=== PATIENT | female | born 1940 | race Caucasian/White ===

== ENCOUNTER → 2016-11-16 | Outpatient (CLI) | payer OTHER ==
[2016-11-16 16:24] LABS: FREE T4 (FREE THYROXINE) 2.1 ng/dL (0.93-1.71)
== END ==
LOC: MOB LAB 11:54
PROVIDERS: ATTEND Internal Medicine
DX: E03.9 Hypothyroidism, unspecified (principal); Z79.899 Other long term (current) drug therapy
CPT/HCPCS: 36415; 84439; 84443; 99214

== ENCOUNTER → 2017-01-22 | Outpatient (CLI) | payer OTHER | LOC: LAB 11:09 | PROVIDERS: ATTEND Internal Medicine | DX: E03.9 Hypothyroidism, unspecified (principal); I48.91 Unspecified atrial fibrillation | CPT/HCPCS: 36415; 80162; 84439; 84443; 99214 ==

== ENCOUNTER → 2017-03-29 | Outpatient (CLI) | payer OTHER ==
[2017-03-29 15:06] LABS: BUN/CREATININE RATIO 16.25 (6-20); CALCIUM 9.7 mg/dL (8.7-10.7)
== END ==
LOC: LAB 13:51
PROVIDERS: ATTEND Internal Medicine
DX: I48.91 Unspecified atrial fibrillation (principal); E03.9 Hypothyroidism, unspecified; E78.5 Hyperlipidemia, unspecified; E87.6 Hypokalemia; J43.9 Emphysema, unspecified; M81.0 Age-related osteoporosis without current pathological fracture; N13.30 Unspecified hydronephrosis
CPT/HCPCS: 36415; 80048; 80162

== ENCOUNTER → 2017-04-12 | Outpatient (CLI) | payer OTHER | LOC: MMPC 11:11 | PROVIDERS: ATTEND Internal Medicine | DX: I48.91 Unspecified atrial fibrillation (principal); J43.9 Emphysema, unspecified; E03.9 Hypothyroidism, unspecified; M81.0 Age-related osteoporosis without current pathological fracture; Z78.0 Asymptomatic menopausal state | CPT/HCPCS: 99214; G0463; J0897 ==

== ENCOUNTER 2017-05-15 14:23 | Emergency (ER) | payer OTHER ==
[2017-05-15] MEDS ORDERED: Sodium Chloride 0.9% 1,000 ML PRIMARY IV ONE (14:30)
[2017-05-15] MEDS ORDERED: ASPIRIN 81 MG (BABY) CHEWABLE TABLET PO ONE (14:35)
[2017-05-15] MEDS ORDERED: NORMAL SALINE 10 ML SYRINGE FLUSH IVP PRN (14:35)
--- NOTE | 2017-05-15 14:37 | EKG ---
[address] [address] Measurements Intervals [place] Rate: 69 P: 76 LA: 151 QRS: 74 QRSD: 81 T: 90 QT: 329 QTc: 349 Interpretive Statements SINUS RHYTHM LOW VOLTAGE No previous ECG available for comparison Electronically Signed On 05-15-17 17:00:48 MDT by Paco Boyd [email or web address]
[2017-05-15 14:43] LABS: BASOPHILS # (AUTO) 0.05 10*3/UL; BASOPHILS % (AUTO) 0.3 % (0-1); EOSINOPHILS # (AUTO) 0.07 10*3/UL; EOSINOPHILS % (AUTO) 0.5 % (0-8); HEMATOCRIT 40.4 % (37.0-47.0); HEMOGLOBIN 13.3 g/dL (12.0-16.0); LYMPHOCYTES # (AUTO) 1.49 10*3/uL; MEAN CORPUSCULAR HEMOGLOBIN 30.6 PG (27-31); MEAN CORPUSCULAR HGB CONC 32.9 g/dL (33-37); MEAN CORPUSCULAR VOLUME 93.1 FL (81-99); MEAN PLATELET VOLUME 9.8 FL (7.4-12.2); MONOCYTES # (AUTO) 1.58 10*3/UL (0.3-0.8); NEUTROPHILS # (AUTO) 11.15 10*3/UL; NEUTROPHILS % (AUTO) 77.4 % (50-80); RED BLOOD COUNT 4.34 10^6/uL (4.20-5.40)
[2017-05-15 14:59] LABS: CALCIUM 9.2 mg/dL (8.7-10.7); MAGNESIUM 1.8 mg/dL (1.6-2.4); SERUM ALBUMIN 4.2 g/dL (3.5-4.8)
[2017-05-15 15:10] LABS: CREATINE KINASE MB 0.48 NG/ML (0.00-5.00); PLATELET MORPHOLOGY COMMENT NORMAL MORPHOLOGY (NORM); RBC MORPHOLOGY COMMENT NORMAL MORPHOLOGY (NORM); WBC MORPHOLOGY COMMENT NORMAL MORPHOLOGY (NORM)
[2017-05-15 15:18] LABS: TROPONIN I < 0.012 ng/mL (< 0.040)
[2017-05-15 15:22] VITALS: RESP 20; TEMP 98.9
[2017-05-15 16:07] LABS: BILIRUBIN,URINE NEGATIVE (NEG); CLARITY,URINE CLEAR (CLEAR); COLOR,URINE YELLOW; GLUCOSE, URINE (UA) NEGATIVE (NEG); NITRATE,URINE NEGATIVE (NEG); OCCULT BLOOD,URINE Trace-intact (NEG); PROTEIN,URINE NEGATIVE (NEG); UROBILINOGEN,URINE 0.2 EU/dL (0.2)
[2017-05-15 16:10] LABS: URINE SAMPLE TYPE VOIDED SPECIMEN
[2017-05-15 16:11] LABS: SQUAMOUS EPITHELIAL CELL,UR FEW
--- NOTE | 2017-05-15 16:25 | DI ---
XR CXR 1VW,05/15/2017 2:35 PM: Clinical History: Chest pain Previous Exam: May 27, 2015 Findings: A single view of the chest is obtained, and demonstrates clear lungs. The cardiomediastinum and bony thorax are unremarkable. Impression: No acute disease.
--- NOTE | 2017-05-15 17:10 | DI ---
CT ABD W/CN AND PELVIS W/CN,05/15/2017 3:43 PM: Clinical History: Abdominal pain and elevated white blood cell count. Previous Exam: None at this facility. Findings: Multiple helically acquired CT images are obtained through the abdomen and pelvis following the intra venous administration of contrast. There is a 7 mm nodule within the right lung base. There is subsegmental atelectasis in the left lung base. The liver, gallbladder, spleen, pancreas, and adrenals are unremarkable. Multiple subcentimeter hypod ensities are seen within both kidneys. There is no hydronephrosis nor nephrolithiasis. The urinary bladder is unremarkable. The appendix is normal. Peripheral vascular calcifications are seen. Mild degenerative changes are seen. Impression: No acute intra-abdominal pathology.
--- NOTE | 2017-05-15 17:29 | DI ---
CT CTA CHEST NONCORONARY W/WO,05/15/2017 3:43 PM: Clinical History: Pleuritic chest pain. Previous Exam: October 12, 2016 Findings: Multiple helically acquired CT images are obtained through the chest following a CT chest angiogram p rotocol, and demonstrate mild diffuse COPD. There is some spiculated mass within the left lung apex p eripherally, and demonstrate an 18 mm density. The pulmonary artery is normal without filling defect nor truncation to suggest pulmonary embolism. A few coronary artery calcifications are seen. Impression: 1. Density within the left lung apex most likely representing early pneumonia. Recommend followup bev ging after treatment to document resolution. 2. No evidence of pulmonary embolism.
--- NOTE | 2017-05-15 23:27 | PDOC ---
Chest Pain HPI - General Chief Complaint: Chest Pain Stated Complaint: SUBSTERNAL CHEST PAIN INCREASING WITH INSPIRATION Date Seen by Provider: 05/15/17 Time Seen by Provider: 14:25 Source: Patient Exam Limitations: POSITIVE: No limitations Treatment Prior to Arrival: REPORTS: None Nurse's Notes Reviewed & Considered: Yes - History of Present Illness Initial Comments: The patient is a 76-year-old female who presents to the emergency department with left lower chest pain. She states that at approximately 6 PM yesterday evening she had onset of sharp pain in her left lower chest. This anus present only with movement or with taking a deep breath. She denies any associated increase in shortness of breath although she reports chronic shortness of breath and only 34% lung capacity. She denies any recent cough, fever, swelling in her legs. She did have charley horses and cramps in both legs throughout the night last night. She does not have any known history of blood clot. She was hospitalized in October of this year in [place] for approximately 1 week with COPD exacerbation and pneumonia. She also had atrial fibrillation at that time. She underwent cardiac workup including cardiac catheterization and echo. She was told that her heart was good. She also reports some intermittent left-sided abdominal pain which has been ongoing off and on for the past several months. She denies urinary symptoms or change in bowel movements. She has not had any associated nausea or vomiting. She denies recent illness or trauma. - Patient Home Medications Home Medications: Home Medications Calcium 600 + Vit D 400 Caplet 1 tab PO BID 03/30/11 Cyanocobalamin/Cobamamide [B-12 5,000 Mcg Sublingual Tab] 1 tab PO DAILY Fluticasone Propionate 1 - 2 spr INASL QD spr 03/30/11 One Daily Multivitamin 1 tab ORAL QD tab 03/30/11 Albuterol Sulfate [Ventolin Hfa] 2 puff INH Q4-6H PRN #1 inhaler 12/10/15 Clonazepam 0.25 mg PO tid prn 30 Days 09/26/16 Levothyroxine Sodium [Synthroid] 0.5 tab ORAL QD #90 tab 09/26/16 Omeprazole 1 cap ORAL QD #90 capsule 09/26/16 Simvastatin 1 tab ORAL QD #90 tab 09/26/16 Tiotropium [place] [Spiriva] 2 puff INH DAILY inh 11/16/16 Aspirin [Aspir 81] 81 mg PO DAILY tab 04/12/17 Digoxin 0.5 tab PO DAILY #90 tab 04/12/17 Metoprolol Succinate/Hctz [Metoprolol Er-Hctz 25-12.5 Mg] 0.5 each PO QD tab Fluticasone Furoate [Arnuity Ellipta] 1 inh INH DAILY 05/15/17 Fluticasone/Vilanterol [Breo Ellipta 100-25 Mcg INH] 1 inh INH DAILY 05/15/17 HYDROcodone/APAP 5/325 Tab [[place] 5/325 Tab] 1 each PO Q6H PRN #20 tablet Umeclidinium [place] [Incruse Ellipta] 1 inh INH DAILY 05/15/17 - Patient Allergies Allergies/Adverse Reactions: Allergies Allergy/AdvReac Type Severity Reaction Status Date / Time No Known Drug Allergies Allergy NOT Verified 05/15/17 14:29 APPLICABLE Past Medical History - heen HEENT History: Cataracts Cardiovascular History: Hypertension, Arrhythmia, Hyperlipidemia Respiratory History: COPD, Emphysema Gastrointestinal History: GERD Genitourinary History: Denies History Endocrine History: Hypothyroidism Musculoskeletal History: Arthritis, Back Pain, Muscle Weakness Neurological History: Denies History Blood Disorders: Denies History Psychiatric History: Anxiety Disorders History of Sexually Transmitted Diseases: No Female Reproductive History: Hysterectomy Additional Female Reproductive History: CERVICAL CA Obstetrical History: Denies History Cancer History: Denies History In Past Year Been Physically Harmed or Verbally Threatened: No History of MDRO: No History of Other Communicable Diseases: No Tobacco Use: Former Smoker Alcohol Use: Rarely Substance Use Type: None Previous Surgical History: Yes Type / Date of Surgery: HYSTERECTOMY. URETER REPAIR. URETER STENT Significant Family History: Heart disease, Cancer Past Medical History Reviewed: Reviewed - No Changes ROS - Limitations ROS Limitations: No Limitations Constitution: DENIES: Chills, Fever Cardiovascular: REPORTS: Chest Pain (Left-sided pleuritic chest pain). DENIES: Heart Racing, Heart Palpitations, Edema Respiratory: REPORTS: Shortness Of Breath (Chronic). DENIES: Cough Non Productive, Cough Productive Neurological: REPORTS: Denies Neuro Symptoms Gastrointestinal: REPORTS: Abdominal Pain (Intermittent left-sided abdominal pain). DENIES: Nausea, Vomitting, Diarrhea, Black Stools, Bloody Stools, Constipation Endocrine: REPORTS: Denies Symptoms Musculoskeletal: REPORTS: Other (She did have lower extremity cramping last night) Genitourinary: REPORTS: Denies Symptoms Eyes: REPORTS: Denies Symptoms ENT: REPORTS: Denies Symptoms Skin: DENIES: Rash Chest Pain PE - General Appearance General Appearance: REPORTS: Alert, Cooperative, No Acute Distress - HEENT HEENT: POSITIVE: Head Inspection Nml, Eyes Inspection Nml, Ears Inspection Nml, Pharynx Inspect. Nml, PERRL, EOMI - Neck Neck: REPORTS: Normal Inspection - Respiratory Respiratory: REPORTS: No Respiratory Distress, Breath Sounds Normal, Other (She does have tenderness to the left lower anterior chest wall) - Cardiovascular Cardiovascular: REPORTS: Regular Rate and Rhythm, Heart Sounds Normal Peripheral Pulses: Dorsalis-pedis (R): 2+, Dorsalis-pedis (L): 2+ - Abdomen Abdomen: Soft: (All Quadrants), No Distention: (All Quadrants) Additional Abdominal Details: She does have some tenderness in the left mid and lower abdomen without guarding or rebound tenderness, no palpable mass. - Skin Skin: REPORTS: Intact, No Rash - Extremities Extremity: Normal ROM: (All Extremities), Normal Inspection: (All Extremities) Additional Extremities Details: No calf tenderness - Neurological / Psychological Neurological: POSITIVE: Oriented X3, md senior research scientist Normal As Tested, Motor Normal, Sensation Normal Chest Pain Progress - Results Reviewed by me Xrays/CTs/US Reviewed by me: Yes Discussed with Radiologist: Yes Radiology Findings: CTA of the chest reveals some mild atelectasis in left lung base, pulmonary nodule in the right lung base, no evidence of PE or any other acute findings per radiologist. CT scan of the abdomen and pelvis reveals no acute findings per radiologist. Lab Results Reviewed: Yes Lab Results:: Laboratory Results 05/15/17 05/15/17 Range/Units 14:39 16:03 WBC 14.41 H (4.8-10.8) 10^3/uL RBC 4.34 (4.20-5.40) 10^6/uL Hgb 13.3 (12.0-16.0) g/dL Hct 40.4 (37.0-47.0) % MCV 93.1 (81-99) FL MCH 30.6 (27-31) PG MCHC 32.9 L (33-37) g/dL RDW Std Deviation 48.2 (39-50) fL RDW Coeff of Ryann 14.6 H (11.5-14.5) % Plt Count 189 (140-350) 10*3/uL MPV 9.8 (7.4-12.2) FL Immature Gran % (Auto) 0.5 (0-5) % Neut % (Auto) 77.4 (50-80) % Lymph % (Auto) 10.3 (10-50) % [place] % (Auto) 11.0 (5-15) % Eos % (Auto) 0.5 (0-8) % Baso % (Auto) 0.3 (0-1) % Immature Gran # (Auto) 0.07 10*3/UL Neut # (Auto) 11.15 10*3/UL Lymph # (Auto) 1.49 10*3/uL [place] # (Auto) 1.58 H (0.3-0.8) 10*3/UL Eos # (Auto) 0.07 10*3/UL Baso # (Auto) 0.05 10*3/UL WBC Morphology Comment Normal morphology (NORM) Plt Morphology Comment Normal morphology (NORM) RBC Morph Comment Normal morphology (NORM) D-Dimer 0.87 H (0.00-0.59) mg/L Sodium 133 L (135-145) meq/L Potassium 3.8 (3.8-5.2) meq/L Chloride 97 L (98-112) meq/L Carbon Dioxide 27 (23-33) meq/L Anion Gap 9 (5-20) BUN 12 (7-22) mg/dL Creatinine 0.8 (0.50-1.20) mg/dL Estimated GFR (>60 ml/min/1.73m(2)) BUN/Creatinine Ratio 15.00 (6-20) Glucose 109 (78-110) mg/dL Calculated Osmolality 276.0 (267-292) mOsm/kg Calcium 9.2 (8.7-10.7) mg/dL Magnesium 1.8 (1.6-2.4) mg/dL Total Bilirubin 3.0 H (0.3-1.2) mg/dL AST 30 (8-39) IU/L ALT 28 (9-52) IU/L Alkaline Phosphatase 51 (38-126) IU/L CK-MB (CK-2) 0.48 (0.00-5.00) NG/ML Troponin I < 0.012 (< 0.040) ng/mL Total Protein 7.5 (6.1-8.0) g/dL Albumin 4.2 (3.5-4.8) g/dL Globulin 3.3 (2.50-4.10) g/dL Albumin/Globulin Ratio 1.20 L (1.3-2.0) mg/g Amylase 46 (30-110) U/L Lipase 52 (23-300) IU/L Ur Collection Type Voided specimen Urine Color Yellow Urine Clarity Clear (CLEAR) Urine pH 7.0 (5.0-8.5) Ur Specific [place] 1.020 (1.005-1.030) Urine Protein Negative (NEG) mg/dl Urine Glucose (UA) Negative (NEG) mg/dL Urine Ketones Trace (NEG) Urine Occult Blood Trace-intact H (NEG) Urine Nitrate Negative (NEG) Urine Bilirubin Negative (NEG) Urine Urobilinogen 0.2 (0.2) EU/dL Ur Leukocyte Esterase Negative (NEG) Urine RBC 2-4 (NONE) /hpf Urine WBC None (NONE) Ur Squamous Epith Cells Few (NONE) Ur Renal Epithelial Cell None (NONE) Urine Crystals None Urine Bacteria None (NONE) Urine Casts None (NONE) Urine Mucus None (NONE) Urine Trichomonas None (NONE) Urine Yeast None (NONE) Ur Culture Indicated? Culture not set EKG Interpreted/Reviewed By Me:: Yes EKG Interpretation:: POSITIVE: Normal Sinus Rhythm, Normal Rate, Normal Intervals, Normal QRS, Normal ST/T - Patient's Progress MDM / ED Course: The patient's initial EKG showed normal sinus rhythm with no acute ST segment or T-wave changes. She did receive aspirin per chest pain protocol. Her initial blood work was all essentially unremarkable except for mildly elevated white blood cell count and her d-dimer was elevated at 0.89. Troponin was normal. She underwent CTA of the chest which was negative for PE. CAT scan of the abdomen did not show any acute findings per radiologist. Her clinical presentation is consistent with pleurisy. She was advised to continue ibuprofen or Aleve as needed as an anti-inflammatory. In addition she was prescribed [place] as needed for pain. She is advised return to the emergency room if she develops increased cough, fever, increased shortness of breath, increased pain, any worsening or change in symptoms. - Consult Counseled: POSITIVE: Patient, Family, RE: Lab Results, RE: Radiology Results, RE : DX, RE: Need for F/U Patient Care Time - Estimated PCT Patient Care Time (In Minutes): 30 Discharge Clinical Impression: Pleurisy Discharge Disposition: Discharged to Home Condition: Stable Prescriptions / Orders: HYDROcodone/APAP 5/325 Tab [[place] 5/325 Tab] 1 each PO Q6H PRN #20 tablet PRN Reason: Pain Patient Instructions Given at Discharge: Pleurisy (ED) Additional Instructions: The CAT scan of your lungs did not show any evidence of blood clots or pneumonia. The pain in the left side of your chest which is worse when he breathes and move is likely secondary to pleurisy which is inflammation of the inside lining of the lung. Recommend ibuprofen or Aleve regularly for the next few days. In addition your been prescribed [place] 5/325 which he can take one every 6 hours as needed for pain. A CAT scan of your abdomen was also done secondary to the episodes of abdominal pain which you have been experiencing. This did not show any abnormalities according to the radiologist. The exact cause of these remains unclear. Return to the emergency room if you develop increased pain, increased shortness of breath, fever, worsening or change in symptoms. Recommend follow-up with Dr. Tirado in 3-5 days. Follow Up With: AGATHA TIRADO [Primary Care Provider] -
== END 2017-05-15 17:47 | disposition home or self-care (01) ==
LOC: ER 14:23
DX: R09.1 Pleurisy (principal); R79.1 Abnormal coagulation profile; R06.02 Shortness of breath; J44.9 Chronic obstructive pulmonary disease, unspecified; I10 Essential (primary) hypertension; R10.32 Left lower quadrant pain; R10.12 Left upper quadrant pain; R07.9 Chest pain, unspecified
CPT/HCPCS: 71010; 71275; 74177; 80053; 81001; 81003; 82150; 82553; 83690; 83735; 84484; 85025; 85379; 93005; 93010; 99284